=== PATIENT | female | born 1950 | race Caucasian/White ===

== ENCOUNTER 2019-02-28 07:07 | Emergency (ER) | payer BC, MEDICARE ==
[2019-02-28] MEDS: Sodium Chloride 0.9% 1,000 ML IV ONE (07:30)
[2019-02-28] MEDS ORDERED: Sodium Chloride 0.9% 10 ML Syringe FLUSH PRN (07:31)
[2019-02-28] MEDS: Morphine 4 MG/ML Syringe IVPUSH ONE (07:35)
[2019-02-28] MEDS: Ondansetron 4 MG/2 ML SDV IVPUSH ONE (07:37)
--- NOTE | 2019-02-28 07:42 | EDM.PDOC ---
<Lopez Washington - Last Filed: 02/28/19 07:33> ED HPI GENERAL MEDICAL PROBLEM - General Chief Complaint: Gastrointestinal Problem Stated Complaint: RLQ Pain Time Seen by Provider: 02/28/19 07:27 Source of Information: Reports: Patient, RN, RN Notes Reviewed History Limitations: Reports: No Limitations - History of Present Illness INITIAL COMMENTS - FREE TEXT/NARRATIVE: Patient presents to the ED at [facility] for the evaluation of RLQ pain that started around 04:30 this morning. Patient states she thought it was gas or she needed to go to the bathroom, so she tried waiting it out. The pain has progressively gotten worse. She feels very nauseated and has only vomited once. Denies any blood in BM. No UTI symptoms. Last abdominal surgery with in the early s. Patient is sharp and stabbing and radiates to the right flank area. She has normal BM's daily. She is an overall healthy patient. She is only on Levothyroxine for low thyroid. No history of any abdominal problems in the past. Onset: Today, Sudden Onset Date: 02/28/19 Onset Time: 04:30 Duration: Constant, Getting Worse Location: Reports: Abdomen (RLQ) Quality: Reports: Sharp, Stabbing Severity: Severe Improves with: Reports: None Worsens with: Reports: None Context: Denies: Activity, Sick Contact, Trauma Associated Symptoms: Reports: Nausea/Vomiting Treatments UPPER INSPECTOR: Reports: Other (see below) (None) - Related Data Allergies Allergy/AdvReac Type Severity Reaction Status Date / Time lidocaine Allergy Anaphylactic Verified 02/28/19 07:32 Shock Home Meds: Home Meds Ketorolac [Toradol] 10 mg PO Q6H PRN #20 tab 02/28/19 [Rx] Levothyroxine 75 mcg PO DAILY 02/28/19 [History] Multivitamin [Multi-Day Vitamins] 1 each PO DAILY 02/28/19 [History] Tamsulosin [Flomax] 0.4 mg PO DAILY 5 Days #5 cap.er 02/28/19 [Rx] ED ROS GENERAL - Review of Systems Review Of Systems: See Below Constitutional: Denies: Fever, Chills Respiratory: Denies: Shortness of Breath, Cough Cardiovascular: Denies: Chest Pain, Palpitations GI/Abdominal: Reports: Abdominal Pain, Nausea, Vomiting. Denies: Bloody Stool, Constipation, Diarrhea Skin: Reports: No Symptoms Neurological: Reports: No Symptoms ED EXAM, GI/ABD - Physical Exam Exam: See Below Exam Limited By: No Limitations General Appearance: Alert, No Apparent Distress Respiratory/Chest: No Respiratory Distress, Lungs Clear, Normal Breath Sounds Cardiovascular: Normal Peripheral Pulses, Regular Rate, Rhythm GI/Abdominal Exam: Soft, Guarding, Rigid, Tender (RLQ), Abnormal Bowel Sounds ( Hypoactive) Neurological: Alert, Oriented Skin Exam: Warm, Dry, Intact, Normal Color Course - Vital Signs Last Recorded V/S: Last Vital Signs Temp 36.2 C 02/28/19 07:15 Pulse 57 L 02/28/19 07:15 Resp 16 02/28/19 07:15 BP 142/63 H 02/28/19 07:15 Pulse Ox 100 02/28/19 07:15 - Orders/Labs/Meds Orders: Active Orders 24 hr Category Date Time Status Sodium Chloride 0.9% [Saline Flush] Med 02/28/19 07:31 Active 10 ml FLUSH ASDIRECTED PRN Peripheral IV Insertion Adult [OM.PC] Routine Oth 02/28/19 07:31 Ordered Medication Orders Sodium Chloride (Saline Flush) 10 ml FLUSH ASDIRECTED PRN PRN Reason: Keep Vein Open Labs: Laboratory Tests 02/28/19 02/28/19 02/28/19 Range/Units 07:15 07:15 07:15 WBC 10.8 H (4.0-10.0) x10^3/uL RBC 4.48 (4.00-5.50) x10^6/uL Hgb 14.2 (12.0-16.0) g/dL Hct 42.1 (33.0-47.0) % MCV 94.0 H (78.0-93.0) fL MCH 31.7 (26.0-32.0) pg MCHC 33.7 (32.0-36.0) g/dL RDW Coeff of Meron 12.6 (10.0-15.0) % Plt Count 289 (130-400) x10^3/uL Neut % (Auto) 80.5 H (50.0-80.0) % Lymph % (Auto) 14.6 L (25.0-50.0) % [place] % (Auto) 4.4 (2.0-11.0) % Eos % (Auto) 0.4 (0.0-4.0) % Baso % (Auto) 0.1 L (0.2-1.2) % Sodium 141 (136-145) mmol/L Potassium 3.4 L (3.5-5.1) mmol/L Chloride 105 (98-107) mmol/L Carbon Dioxide 20 L (21-32) mmol/L Anion Gap 19.4 (10-20) mmol/L BUN 19 H (7-18) mg/dL Creatinine 1.0 (0.55-1.02) mg/dL Est Cr Clr Drug Dosing 41.19 mL/min Estimated GFR (MDRD) 55 Glucose 137 H (74-106) mg/dL Lactic Acid 3.1 H* (0.4-2.0) mmol/L Calcium 9.4 (8.5-10.1) mg/dL Corrected Calcium 9.64 (8.5-10.1) mg/dL Total Bilirubin 0.7 (0.2-1.0) mg/dL AST 17 (15-37) U/L ALT 18 (14-59) U/L Alkaline Phosphatase 61 (46-116) U/L C-Reactive Protein 0.2 (<=0.9) mg/dL Total Protein 6.9 (6.4-8.2) g/dL Albumin 3.7 (3.4-5.0) g/dL Globulin 3.2 Albumin/Globulin Ratio 1.16 Amylase 38 (25-115) U/L Lipase 107 (73-393) U/L Urine Color (YELLOW) Urine Appearance (CLEAR) Urine pH (5.0-8.0) Ur Specific [place] Urine Protein (NEGATIVE) mg/dL Urine Glucose (UA) (NEGATIVE) mg/dL Urine Ketones (NEGATIVE) mg/dL Urine Occult Blood (NEGATIVE) Urine Nitrite (NEGATIVE) Urine Bilirubin (NEGATIVE) Urine Urobilinogen (0.2) EU/dL Ur Leukocyte Esterase (NEGATIVE) Urine RBC (NOT SEEN) /HPF Urine WBC (NOT SEEN) /HPF Ur Squamous Epith Cells (NEGATIVE) /HPF Urine Bacteria (NEGATIVE) /HPF Urine Mucus (NEGATIVE) /LPF 02/28/19 Range/Units 07:15 WBC (4.0-10.0) x10^3/uL RBC (4.00-5.50) x10^6/uL Hgb (12.0-16.0) g/dL Hct (33.0-47.0) % MCV (78.0-93.0) fL MCH (26.0-32.0) pg MCHC (32.0-36.0) g/dL RDW Coeff of [place] (10.0-15.0) % Plt Count (130-400) x10^3/uL Neut % (Auto) (50.0-80.0) % Lymph % (Auto) (25.0-50.0) % [place] % (Auto) (2.0-11.0) % Eos % (Auto) (0.0-4.0) % Baso % (Auto) (0.2-1.2) % Sodium (136-145) mmol/L Potassium (3.5-5.1) mmol/L Chloride (98-107) mmol/L Carbon Dioxide (21-32) mmol/L Anion Gap (10-20) mmol/L BUN (7-18) mg/dL Creatinine (0.55-1.02) mg/dL Est Cr Clr Drug Dosing mL/min Estimated GFR (MDRD) Glucose (74-106) mg/dL Lactic Acid (0.4-2.0) mmol/L Calcium (8.5-10.1) mg/dL Corrected Calcium (8.5-10.1) mg/dL Total Bilirubin (0.2-1.0) mg/dL AST (15-37) U/L ALT (14-59) U/L Alkaline Phosphatase (46-116) U/L C-Reactive Protein (<=0.9) mg/dL Total Protein (6.4-8.2) g/dL Albumin (3.4-5.0) g/dL Globulin Albumin/Globulin Ratio Amylase (25-115) U/L Lipase (73-393) U/L Urine Color Dark yellow H (YELLOW) Urine Appearance Cloudy H (CLEAR) Urine pH 5.5 (5.0-8.0) Ur Specific [place] >=1.030 Urine Protein 100 H (NEGATIVE) mg/dL Urine Glucose (UA) Negative (NEGATIVE) mg/dL Urine Ketones 40 H (NEGATIVE) mg/dL Urine Occult Blood Large H (NEGATIVE) Urine Nitrite Negative (NEGATIVE) Urine Bilirubin Small H (NEGATIVE) Urine Urobilinogen 0.2 (0.2) EU/dL Ur Leukocyte Esterase Negative (NEGATIVE) Urine RBC 40-50 H (NOT SEEN) /HPF Urine WBC 5-10 H (NOT SEEN) /HPF Ur Squamous Epith Cells Rare (NEGATIVE) /HPF Urine Bacteria Moderate H (NEGATIVE) /HPF Urine Mucus Few H (NEGATIVE) /LPF Meds: Medications Generic Name Dose Route Start Last Admin Trade Name Freq PRN Reason Stop Dose Admin Sodium Chloride 10 ml 02/28/19 07:31 Saline Flush FLUSH ASDIRECTED PRN Keep Vein Open Discontinued Medications Generic Name Dose Route Start Last Admin Trade Name Freq PRN Reason Stop Dose Admin Hydromorphone HCl 2 mg 02/28/19 08:09 Dilaudid IVPUSH 02/28/19 08:10 ONETIME ONE Sodium Chloride 1,000 mls @ 999 mls/hr 02/28/19 07:32 02/28/19 07:30 Normal Saline IV 02/28/19 08:32 999 mls/hr ONETIME ONE Administration Iopamidol 100 ml 02/28/19 07:34 02/28/19 08:17 Isovue-300 (61%) IVPUSH 02/28/19 07:35 100 ml ONETIME ONE Administration Morphine Sulfate 4 mg 02/28/19 07:32 02/28/19 07:35 Morphine IVPUSH 02/28/19 07:33 4 mg ONETIME ONE Administration Ondansetron HCl 4 mg 02/28/19 07:32 02/28/19 07:37 Zofran IVPUSH 02/28/19 07:33 4 mg ONETIME ONE Administration Departure - Departure Disposition: Home, Self-Care 01 Clinical Impression: Ureteral stone with hydronephrosis, Abdominal pain, Kidney stone - Discharge Information Instructions: Kidney Stones, [id number] Forms: ED Department Discharge Additional Instructions: 1. rest 2. increase water intake to help prevent dehydration 3. Avoid caffeine and tobacco products 4. Can take toradol as needed for moderate pain. Can take tylenol as needed for mild pain 5. Flomax script was provided, take 1 tab daily for 5 days to help with expulsion of the stone 6. Follow up with PCP if not feeling better within a week 7. A strainer kit was sent home. 8. Call with any questions or concerns. - Problem List Review Problem List Initiated/Reviewed/Updated: Yes <Bonnie Ochoa - Last Filed: 02/28/19 09:33> ED EXAM, GI/ABD - Physical Exam Exam Limited By: No Limitations General Appearance: Alert, WD/WN, No Apparent Distress Respiratory/Chest: No Respiratory Distress, Lungs Clear, Normal Breath Sounds, No Accessory Muscle Use, Chest Non-Tender Cardiovascular: Normal Peripheral Pulses, Regular Rate, Rhythm GI/Abdominal Exam: Normal Bowel Sounds, Soft, Non-Tender, No Mass Extremities: Normal Inspection, Normal Range of Motion, No Pedal Edema Neurological: Alert, Oriented, Normal Gait Psychiatric: Normal Affect, Normal Mood Skin Exam: Warm, Dry, Intact, Normal Color Departure - Departure Time of Disposition: 09:25 - Discharge Information *PRESCRIPTION DRUG MONITORING PROGRAM REVIEWED*: Not Applicable *COPY OF PRESCRIPTION DRUG MONITORING REPORT IN PATIENT DAVID: Not Applicable - Assessment/Plan Assessment:: 1. ureter stone measuring 3mm with mild- right-sided hydronephrosis 2. abdominal pain Plan: 1. Labs completed in ER. 2. IV and fluids given in the ER via previous ER provider 3. CT completed results reveal 3mm ureter calculus with mild right sided hydronephrosis 4. Pt is pain free prior to discharge and is very familiar with kidney stones. 5. Pt will be given Toradol and Flomax. Education was provided that research does suggest stones under 3mm flomax may not be any more effective than not taking the medication. The patient would still like to take the medication for she feels it has helped in the past. 6. Education regarding follow up, diet, rest, medication management was provided 7. All questions and concerns addressed prior to discharge.
[2019-02-28 08:08] LABS: ANION GAP 19.4 mmol/L (10-20)
[2019-02-28] MEDS ORDERED: HYDROmorphone 1 MG/ML Syringe IVPUSH ONE (08:09)
[2019-02-28] MEDS: Iopamidol 612 MG/ML 100 ML Bottle IVPUSH ONE (08:17)
--- NOTE | 2019-02-28 08:56 | CT ---
[id number] CT/CT Abdomen Pelvis W IV EXAM: CT Abdomen Pelvis W IV CLINICAL DATA: RIGHT LOWER QUADRANT PAIN. NAUSEA AND VOMITING. COMPARISON: NO PREVIOUS SIMILAR EXAM IS AVAILABLE. FINDINGS: A 3 mm radiopaque calculus is seen in the proximal ureter. This is identified on image 61, series 2. There is mild right-sided hydronephrosis. The mesenteric vessels are normal. The bowel is not distended. There is no free air or free fluid. The appendix is not seen. The gallbladder is not distended. A 3.5 cm left ovarian cyst is seen. The uterus is mildly involuted. The liver and spleen, left kidney, adrenals, pancreas, and aorta are unremarkable. IMPRESSION: 3 MM RADIOPAQUE PROXIMAL RIGHT URETERAL CALCULUS. MILD RIGHT-SIDED HYDRONEPHROSIS. LEFT OVARIAN CYST. THIS SHOULD BE CONSIDERED FOR FOLLOW-UP THE PATIENT IS POSTMENOPAUSAL. Dru Carrasquillo MD 02/28/19 0855 Thank you for allowing us to participate in the care of your patient.
== END 2019-02-28 09:35 | disposition home or self-care (01) ==
LOC: VM.ED 07:07
DX: N13.2 Hydronephrosis with renal and ureteral calculous obstruction (principal); Z88.8 Allergy status to other drugs, medicaments and biological substances
CPT/HCPCS: 74177; 80053; 81001; 82150; 83605; 83690; 85025; 86140; 96361; 96374; 96375; 99284; J2270; J2405; J7030; Q9967